=== PATIENT | female | born 1940 | race Caucasian/White ===

== ENCOUNTER → 2017-06-14 | Outpatient (CLI) | payer MEDICARE ==
[~2017-06-14] MED LIST: AMOX-559 PO; HYDR-4309 PO
--- NOTE | 2017-06-14 16:11 | RADIOLOGY IMAGING REPORT ---
FACILITY: [facility] PATIENT NAME: Salud Boo : 1940 MR: [id number] V: [id number] EXAM DATE: ORDERING PHYSICIAN: DEUCE ROBLERO TECHNOLOGIST: Location: [facility] [place] Patient: Salud Boo : 1940 Visit/Account:[id number] Date of Sevice: 06/14/2017 Exam type: CHEST PA AND LAT History: Cough Comparison: 05/24/2017. Findings: Both lungs are hyperexpanded. Chronic interstitial markings are noted but there is no focal consolid ation, pleural effusion or pneumothorax. Heart size is upper limits of normal. Pulmonary arteries are prominent but unchanged. Bowel loops around the right hemidiaphragm, a normal variant. The osseous structures demonstrate degenerative changes in left shoulder and in the spine. IMPRESSION: 1. No acute cardiopulmonary disease. 2. Pulmonary hyperinflation with chronic appearing interstitial markings. Report Dictated By: Harpreet Arreola MD at 06/14/2017 4:05 PM Report E-Signed By: Harpreet Arreola MD at 06/14/2017 4:07 PM WSN:[id number]
== END ==
LOC: RAD 15:15
PROVIDERS: ATTEND Family Medicine
DX: R91.8 Other nonspecific abnormal finding of lung field (principal)
CPT/HCPCS: 71046

== ENCOUNTER → 2017-06-21 | Outpatient (REF) | payer MEDICARE | LOC: ZZSENDIN 14:05 | PROVIDERS: ATTEND Physician Assistant Medical | DX: I50.9 Heart failure, unspecified (principal); R05 Cough | CPT/HCPCS: 83880 ==

== ENCOUNTER → 2017-06-29 | Outpatient (CLI) | payer MEDICARE ==
--- NOTE | 2017-06-30 22:08 | RADIOLOGY IMAGING REPORT ---
FACILITY: [facility] [place] PATIENT NAME: CHRYSTAL HANLEY : [id number] MR: [id number] V: [id number] EXAM DATE: ORDERING PHYSICIAN: DOROTHY RALPH TECHNOLOGIST: Dorothy Wayne EXAMINATION:TWO-DIMENSIONAL ECHOCARDIOGRAPH REASON:CONGESTIVE HEART FAILURE AND ATRIAL FIBRILLATION. 2D Measurements (normal values in centimeters) LV endLV endRV endVent.LV PostAorticLeftPercent DiastolicSystolicDiastolicSeptumWallRootAtriumShortening (3.5-5.7)(0.9-2.6)(0.6-1.1)(0.6-1.1)(2.0-3.7)(1.9-4.0)(25-35%) [id number]% STROKE VOLUME: 37 mL ESTIMATED EJECTION FRACTION:54% PARASTERNAL LONG AXIS: Left ventricular systolic function does appear to be normal. There does appear to be mild left ventricular thickening somewhat concentric. No evidence for any outflow tract obstruction. The mitral valve appears to be sclerotic. Left atrium appears to be markedly enlarged. The right ventricle is normal in size and the TAPSE is measured at 2.0 which is within normal ranges. The patient appears to be in a bundle branch block. Color examination of the valves reveals some mitral insufficiency as well as some aortic insufficiency. PARASTERNAL SHORT AXIS: Again left ventricular thickening is noted. The overall left ventricular systolic function appears to be normal. Aortic valve is trileaflet in configuration and appears to be sclerotic but not stenotic. The view is somewhat technically difficult. APICAL FOUR AND TWO CHAMBER: Normal left ventricular ejection fraction. The right sided heart chambers appear to be normal. The left atrium appears to be markedly enlarged. The aortic valve area was measured at 1.8 cm2 with a mean pressure gradient across the valve of 9 mmHg and mitral valve area was measured within normal ranges at 2.3 cm2. There is mitral annular calcification. The left atrial volume is severely increased at 60 mL/m2. The right atrial volume is normal in size at 19 mL/m2. Color examination of the mitral valve reveals a mild to possibly borderline moderate amount of mitral insufficiency. Color examination of the tricuspid valve reveals a mild amount of tricuspid insufficiency. Tricuspid regurgitation V-max is measured at 2.06 m/sec and estimated right atrial pressure is 3 mmHg. No wall motion abnormalities are noted. SUBCOSTAL VIEW: No pericardial effusion was noted. No atrial septal or ventricular septal defects were appreciated. Doppler examination of the mitral valve in diastole does reveal a normal pattern but there is reversal with Valsalva and decrease in the medial and lateral E prime velocity suggesting moderate decrease in diastolic function. OVERALL IMPRESSION: 1. Trileaflet aortic valve with aortic sclerosis but no stenosis and a mild amount of aortic insufficiency. 2. There is mild to moderate amount of mitral insufficiency with mild mitral annular calcification but no stenosis. 3. Mild amount of tricuspid insufficiency with estimated right ventricular systolic pressure within normal range at 20 mmHg which does include an estimated right atrial pressure of 3 mmHg. 4. There is a trace of pulmonic insufficiency. 5. There is severe left atrial enlargement with the other chamber sizes being normal. The left atrial volume measured 60 mL/m2. 6. Mild amount of left ventricular thickening but no evidence for any outflow tract obstruction. 7. In comparison to the examination done on 05/17/16, the views are somewhat better ant the left ventricular thickening is not as large as it was measured in 2016 but that was a difficult echo. The left atrial volume has significantly increased. 8. Nl lv ejection fraction with a grade 2 decrease in diastolic function indicating moderate decreas6 Dictated by: Kristen Vides M.D. on 06/30/2017 at 13:04 Transcribed by: ATUL on 06/30/2017 at 13:56 Approved by: Kristen Vides M.D. on 06/30/2017 at 22:05 [facility]
== END ==
LOC: US 02:00
PROVIDERS: ATTEND Physician Assistant Medical
DX: I35.8 Other nonrheumatic aortic valve disorders (principal); I35.1 Nonrheumatic aortic (valve) insufficiency; I25.10 Atherosclerotic heart disease of native coronary artery without angina pectoris; I51.7 Cardiomegaly
CPT/HCPCS: 36415; 83880; 93306

== ENCOUNTER → 2017-11-28 | Outpatient (CLI) | payer MEDICARE ==
--- NOTE | 2017-11-28 15:07 | RADIOLOGY IMAGING REPORT ---
FACILITY: [facility] PATIENT NAME: Salud Boo : 1940 MR: [id number] V: [id number] EXAM DATE: ORDERING PHYSICIAN: DORA KHAN TECHNOLOGIST: Location: [facility] Patient: Salud Boo : 1940 Visit/Account:[id number] Date of Sevice: 11/28/2017 Exam type: CHEST PA AND LAT History: Amiodarone therapy Comparison: 2017. Findings: Again noted is mild hyperexpansion of the lung barnhart and chronic interstitial markings bilaterally. No acute-appearing pulmonary consolidation is identified. The cardiac silhouette is normal in size. There are moderate spondylotic changes of the thoracic spine and degenerative changes at the should er joints, left greater than right IMPRESSION: 1. Hyperinflation lung barnhart and chronic interstitial markings of the lungs although no evidence of acute pulmonary consolidation Report Dictated By: Ann Lanier MD at 11/28/2017 2:52 PM Report E-Signed By: Ann Lanier MD at 11/28/2017 3:03 PM WSN:[email or web address]
== END ==
LOC: RESP 01:55
PROVIDERS: ATTEND Internal Medicine Cardiovascular Disease
DX: I48.91 Unspecified atrial fibrillation (principal); Z79.899 Other long term (current) drug therapy; R91.8 Other nonspecific abnormal finding of lung field; M47.894 Other spondylosis, thoracic region; M19.012 Primary osteoarthritis, left shoulder; M19.011 Primary osteoarthritis, right shoulder
CPT/HCPCS: 36415; 71046; 82040; 82247; 82248; 84075; 84155; 84443; 84450; 84460; 94060; 94729

== ENCOUNTER 2018-08-03 02:03 | Day surgery (SDC) | payer MEDICARE ==
[~2018-08-03] VITALS: Ht 152.4 cm; Wt 59.0 kg
[~2018-08-03 02:03] MED LIST changes: +ASCO-191 PO; +CYA1000 PO; +DONE5TAB29 PO; -HYDR-4309 PO; +HYDR-653 PO; +LEVO75TA73 PO; +LYSI500T32 PO; +MAGN250T34 PO; +MEMA1TAB2 PO; +METO-257 PO; +NAPR220C12 PO; +OMEP-125 PO; +POTA99TA6 PO; +PRAV20TA65 PO; +PYRI100T57 PO; +TRAM-420 PO; +UBID100C48 PO; +WARF2.5T11 PO; +WARF2.5T62 PO; +[UNRECOGNIZED DRUG - CODE] PO
[2018-08-03 12:16] VITALS: BP 148/78
[2018-08-03] MEDS ORDERED: OPHTHALMIC PROCEDURE 2 OD PRN (12:30)
[2018-08-03] MEDS ORDERED: OPHTHALMIC PROCEDURE 1 OD PRN (12:30)
[2018-08-03] MEDS ORDERED: acetaZOLAMIDE 500 MG CAPCR PO ONE (12:30)
[2018-08-03] MEDS: OPHTHALMIC PROCEDURE 2 OD PRN ×2 (12:31→12:35)
[2018-08-03] MEDS ORDERED: LIDOCAINE/SOD BICARB 8.4% SYR ID ONE (13:30)
[2018-08-03] MEDS ORDERED: NORMOSOL R SOLN(*) 1000 ML BAG 1,000 ML IV PRN (13:30)
[2018-08-03 13:48] VITALS: BP 153/84
--- NOTE | 2018-08-03 17:28 | FOSTER RIGHT EYE CATARACT ---
EVENT DATE: August 03, 2018 SURGEON: Antonio Ludwig MD ANESTHESIOLOGIST: Kendrick Kaur MD ANESTHESIA: MAC PREOPERATIVE DIAGNOSIS Cataract, right eye. POSTOPERATIVE DIAGNOSIS Cataract, right eye. PROCEDURE Phacoemulsification of cataractous lens with implantation of an intraocular lens, right eye. DESCRIPTION OF PROCEDURE The risks, benefits, and alternatives were carefully discussed with the patient, and preoperative consent was obtained. The patient was brought to the operating room after receiving topical anesthetic. The patient was prepped and draped using sterile technique in the usual manner. A stab incision was made, and the chamber was inflated with preservative-free lidocaine. DuoVisc was injected to inflate the chamber. A 2.2 mm blade was used to enter the anterior chamber. Utrata forceps were used to tear a circular capsulorrhexis. BSS was used to hydrodissect the nucleus. Phaco tip was introduced, and the nucleus was chopped into four quadrants. Each quadrant was removed. The I/A tip was used to remove the cortex. The bag was inflated with ProVisc. The intraocular lens was injected into the capsular bag. The I/A tip was used to remove the ProVisc. The wound was found to be watertight. Vigamox, Nevanac, and Maxitrol ointment were placed in the patient's eye. The patient's eye was patched, and the patient was taken to the recovery room in stable condition. The patient was examined in the recovery room and found to be stable prior to release from the hospital. KELLEY
== END 2018-08-03 15:00 | disposition home or self-care (01) ==
LOC: OR 02:03
PROVIDERS: ATTEND Ophthalmology
DX: H25.11 Age-related nuclear cataract, right eye (principal)
CPT/HCPCS: 66984; A9270; V2632

== ENCOUNTER 2018-10-12 02:01 | Day surgery (SDC) | payer MEDICARE ==
[~2018-10-12] VITALS: Ht 152.4 cm; Wt 54.4 kg
[2018-10-12 12:25] VITALS: BP 149/58
[2018-10-12] MEDS ORDERED: NORMOSOL R SOLN(*) 1000 ML BAG 1,000 ML IV PRN (13:00)
[2018-10-12] MEDS ORDERED: acetaZOLAMIDE 500 MG CAPCR PO ONE (13:00)
[2018-10-12] MEDS ORDERED: LIDOCAINE/SOD BICARB 8.4% SYR ID ONE (13:00)
[2018-10-12] MEDS ORDERED: OPHTHALMIC PROCEDURE 2 OS PRN ×2 (13:00)
[2018-10-12] MEDS ORDERED: OPHTHALMIC PROCEDURE 1 OS PRN (13:00)
[2018-10-12] MEDS ORDERED: LIDOCAINE MPF 1% 5 ML VIAL ONE (13:45)
[2018-10-12] MEDS ORDERED: PROPOFOL EMUL(*) 10MG/ML 20 ML 20 ML ONE (13:45)
[2018-10-12] MEDS ORDERED: fentaNYL CITR 100 MCG/2 ML AMP ONE (14:25)
[2018-10-12 14:27] VITALS: BP 121/60
--- NOTE | 2018-10-12 19:46 | FOSTER LEFT EYE CATARACT ---
EVENT DATE: October 12, 2018 SURGEON: Antonio Ludwig MD ANESTHESIOLOGIST: NUHA PARDO MD ANESTHESIA: MAC PREOPERATIVE DIAGNOSIS Cataract, left eye. POSTOPERATIVE DIAGNOSIS Cataract, left eye. PROCEDURE Phacoemulsification of cataractous lens with implantation of an intraocular lens, left eye. DESCRIPTION OF PROCEDURE The risks, benefits, and alternatives were carefully discussed with the patient, and preoperative consent was obtained. The patient was brought to the operating room after receiving topical anesthetic. The patient was prepped and draped using sterile technique in the usual manner. A stab incision was made, and the chamber was inflated with preservative-free lidocaine. DuoVisc was injected to inflate the chamber. A 2.2 mm blade was used to enter the anterior chamber. Utrata forceps were used to tear a circular capsulorrhexis. BSS was used to hydrodissect the nucleus. Phaco tip was introduced, and the nucleus was chopped into four quadrants. Each quadrant was removed. The I/A tip was used to remove the cortex. The bag was inflated with ProVisc. The intraocular lens was injected into the capsular bag. The I/A tip was used to remove the ProVisc. The wound was found to be watertight. Vigamox, Nevanac, and Maxitrol ointment were placed in the patient's eye. The patient's eye was patched, and the patient was taken to the recovery room in stable condition. The patient was examined in the recovery room and found to be stable prior to release from the hospital. [facility]
== END 2018-10-12 14:43 | disposition home or self-care (01) ==
LOC: OR 02:01
PROVIDERS: ATTEND Ophthalmology
DX: H25.11 Age-related nuclear cataract, right eye (principal); H25.12 Age-related nuclear cataract, left eye
CPT/HCPCS: 66984; A9270; J2001; J2704; J3010; V2632